=== PATIENT | male | born 1955 | race Caucasian/White ===

== ENCOUNTER 2022-10-06 08:56 | Emergency (ER) | payer MEDICARE, SELFPAY ==
[2022-10-06] VITALS (10 sets, daily range): BP systolic 125–161; BP diastolic 76–89; PULSE 44–56; RESP 14–20; TEMP 36.6; O2SAT 94–100
--- NOTE | ~2022-10-06 | XR_ITS ---
XR chest 1V portable DATE: 10/06/2022 09:32 INDICATION: Midsternal chest pain TECHNIQUE: Portable AP chest on 10/06/2022 5 0926 hours COMPARISON: October 16, 2016 two-view chest FINDINGS: Normal heart size. No hilar or mediastinal enlargement. No pulmonary infiltrate or consolid ation, pleural effusion or pulmonary vascular congestion or pneumothorax. Mild dextroscoliosis and degenerative spurring of the thoracic spine. IMPRESSION: No active cardiopulmonary disease Reviewed, dictated and finalized at location B.
--- NOTE | 2022-10-06 09:13 | ECG_ITS ---
Measurements Intervals Gable Rate: 52 P: 44 ND: 206 QRS: -3 QRSD: 107 T: -1 QT: 423 QTc: 396 Interpretive Statements SINUS BRADYCARDIA DELAYED PRECORDIAL R/S TRANSITION MINIMAL Q WAVES- HIGH LATERAL LEADS BORDERLINE T WAVE ABNORMALITY- INFERIOR LEADS BORDERLINE ECG NO PREVIOUS ECG AVAILABLE FOR COMPARISON Electronically Signed On 10-06-2022 10:48:12 CDT by Cyrus Herzog D.O.
--- NOTE | 2022-10-06 09:22 | ED.CHESTPAIN ---
HPI - Chest Pain General Chief Complaint: Chest Pain Stated Complaint: Chest pain Time Seen by Provider: 10/06/22 09:11 Source: patient and family Mode of arrival: ambulatory Limitations: no limitations History of Present Illness HPI narrative: 67-year-old male presents with 3 days of intermittent chest pain accompanied by numbness and tingling of all 4 extremities. Denies any shortness of breath or ankle swelling. No nausea, vomiting, diarrhea, fevers or chills. Patient reports the pain is worse at nighttime and not particularly increased with exertion. Past medical history significant for hypertension which is presently uncontrolled as he and his physician has been changing his medications. No prior history cardiac disease or CO. MD complaint: chest discomfort Onset (ago): day(s) Timing of current episode: episodic, daily and still present ( but not as bad) Prior episodes: No Onset: during rest Pain location: substernal Pain radiation: none Severity: mild Quality: tightness Relieving factors: nothing Exacerbating factors: supine Treatment prior to arrival: none Risk Factors Coronary artery disease risk factors: hyperlipidemia and hypertension Thoracic aortic dissection risk factors: longstanding hypertension Related Data Home Medications Medication Instructions Recorded Confirmed lisinopril 20 mg tablet 20 mg PO DAILY 10/06/22 10/06/22 pravastatin 10 mg tablet 10 mg PO DAILY 10/06/22 10/06/22 Allergies Allergy/AdvReac Type Severity Reaction Status Date / Time No Known Allergies Allergy Unverified 10/16/16 16:59 Review of Systems Review of Systems: All systems reviewed & are unremarkable except as noted in HPI and below Constitutional: Constitutional: Denies chills, Reports difficulty sleeping, Denies excessive sweating, Denies fever(s) and Denies weakness Eyes: Eyes: Denies blurry vision and Denies loss of vision ENT: Denies dizziness, Denies headache(s) and Denies sore throat Cardiovascular: Cardiovascular: Denies syncope, Denies rapid heart rate, Denies pedal edema, Denies irregular heart rhythm, Denies leg edema, Denies dyspnea and Denies orthopnea Respiratory: Respiratory: Denies chest congestion, Denies cough and Denies dyspnea Gastrointestinal: Gastrointestinal: Denies abdominal pain, Reports belching, Denies change in bowel habits, Denies constipation, Denies dysphagia, Denies diarrhea, Denies nausea and Denies vomiting Musculoskeletal: Musculoskeletal: Denies back pain, Denies myalgias and Reports tingling Integumentary/Breasts: Skin/Breast: Denies rash Psychiatric: Psychiatric: Denies anxiety and Denies depression PMFSH Past Medical History Medical History Hypertension Exam Const: General: cooperative, alert and average body habitus; No diaphoretic or edematous Nutritional Appearance: well nourished Orientation/consciousness: No confusion Limitations: no limitations HENMT: Head: normal to inspection and no acral cyanosis Ears: hearing grossly normal bilaterally Face/Nose/Sinus: Normal external nose present, no nasal discharge noted, face symmetric and ecchymosis ( left periorbital region) Face and sinus: normal facial exam Eyes: Conjunctivae: conjunctivae normal Neck: Neck: normal visual inspection, trachea midline and no JVD Chest: Chest palpation & inspection: normal inspection of the chest, normal palpation of entire chest wall and no crepitus Resp: Effort & Inspection: normal respiratory effort, no audible wheezes and no respiratory distress Auscultation: clear to auscultation bilaterally Cardio: Jugular venous distension: no JVD Palpation: normal PMI Rate: bradycardic Rhythm: regular rhythm GI: Inspection: normal to inspection GI Palp: No abdominal tenderness and Yes Soft to palpation Auscultation: normal bowel sounds Skin: General skin exam: normal color and dry skin Lesions: no lesions Rashes: no rashes Neuro
[2022-10-06] MEDS: ASPIRIN 81 MG CHEWABLE TABLET 324 MG PO (09:25)
[2022-10-06 09:29] LABS: Basophils Absolute Auto 0.06 K/mm3 (0.00-0.10); Basophils Percent Auto 1.2 % (0.0-1.0); Eosinophils Absolute Auto 0.08 K/mm3 (0.02-0.50); Eosinophils Percent Auto 1.7 % (1.0-6.0); Hematocrit 39.3 % (37.0-46.0); Hemoglobin 13.4 g/dL (12.4-15.3); Immature Granulocyte Absolute 0.01 K/mm3 (0.00-0.00); Immature Granulocyte Percent A 0.2 % (0.0-0.0); Lymphocytes Absolute Auto 1.26 K/mm3 (1.10-4.50); Lymphocytes Percent Auto 26.1 % (18.0-42.0); Mean Corpuscular HGB Conc 34.1 g/dL (32.0-36.0); Mean Corpuscular Hemoglobin 31.5 pg (27.0-31.0); Mean Corpuscular Volume 92.3 fL (78.0-102.0); Mean Platelet Volume 10.1 fl (8.7-11.0); Monocytes Absolute Auto 0.45 K/mm3 (0.10-0.90); Monocytes Percent Auto 9.3 % (2.0-11.0); Neutrophils Percent Auto 61.5 % (50.0-70.0); Platelet Count Result 223 K/mm3 (150-420); Red Blood Count 4.26 M/mm3 (4.70-6.10); Red Cell Distribution Width 13.4 % (11.6-14.4); White Blood Count 4.8 K/mm3 (4.8-10.8)
[2022-10-06 09:41] LABS: D Dimer 0.27 mg/L (0.19-0.50)
[2022-10-06 09:46] LABS: Anion Gap 7 mmol/L (8-16); Blood Urea Nitrogen 16 mg/dL (7-18); Calcium 8.8 mg/dL (8.5-10.1); Carbon Dioxide 27 mmol/L (21-32); Chloride 106 mmol/L (98-108); Estimated CRCL calculation 75 ml/min; Estimated Glomerular Filt Rate > 60; Glucose 105 mg/dL (70-99); Osmolality Calculated 291 mOsm/kg (285-295); Potassium 4.3 mmol/L (3.5-5.1); Sodium 140 mmol/L (136-145)
== END 2022-10-06 10:27 | disposition home or self-care (01) ==
PROVIDERS: Emergency Provider Family Medicine
DX: R07.89 Other chest pain (principal); I10 Essential (primary) hypertension
CPT/HCPCS: 36415; 71045; 80048; 84484; 85025; 85380; 93005; 99283; A9270

== ENCOUNTER 2023-04-09 07:46 | Outpatient (CLI) | payer MEDICARE, SELFPAY ==
[2023-04-09 08:01] LABS: Basophils Absolute Auto 0.07 K/mm3 (0.00-0.10); Basophils Percent Auto 1.2 % (0.0-1.0); Eosinophils Absolute Auto 0.14 K/mm3 (0.02-0.50); Eosinophils Percent Auto 2.4 % (1.0-6.0); Hematocrit 41.5 % (37.0-46.0); Immature Granulocyte Absolute 0.02 K/mm3 (0.00-0.00); Immature Granulocyte Percent A 0.3 % (0.0-0.0); Lymphocytes Absolute Auto 1.59 K/mm3 (1.10-4.50); Lymphocytes Percent Auto 27.1 % (18.0-42.0); Mean Corpuscular HGB Conc 33.7 g/dL (32.0-36.0); Mean Corpuscular Hemoglobin 31.3 pg (27.0-31.0); Mean Corpuscular Volume 92.8 fL (78.0-102.0); Mean Platelet Volume 9.8 fl (8.7-11.0); Monocytes Absolute Auto 0.58 K/mm3 (0.10-0.90); Monocytes Percent Auto 9.9 % (2.0-11.0); Neutrophils Absolute Auto 3.5 K/mm3 (1.7-7.2); Neutrophils Percent Auto 59.1 % (50.0-70.0); Platelet Count Result 253 K/mm3 (150-420); Red Blood Count 4.47 M/mm3 (4.70-6.10); White Blood Count 5.9 K/mm3 (4.8-10.8)
[2023-04-09 08:09] LABS: Hemoglobin A1C 5.6 % (<5.7)
[2023-04-09 08:43] LABS: Alanine Aminotransferase 19 U/L (16-63); Albumin Level 3.6 g/dL (3.4-5.0); Alkaline Phosphatase 54 U/L (46-116); Anion Gap 8 mmol/L (8-16); Aspartate Amino Transferase 18 U/L (15-37); Bilirubin Direct 0.2 mg/dL (0-0.2); Bilirubin,Total 1.6 mg/dL (0.00-1.00); Blood Urea Nitrogen 18 mg/dL (7-18); Calcium 9.2 mg/dL (8.5-10.1); Carbon Dioxide 27 mmol/L (21-32); Chloride 105 mmol/L (98-108); Cholesterol 185 mg/dL (0-200); Estimated Glomerular Filt Rate > 60; Glucose 99 mg/dL (70-99); HDL Direct 54 mg/dL (40-60); LDL Cholesterol Calculated 114 mg/dL (<130); Osmolality Calculated 291 mOsm/kg (285-295); Potassium 4.8 mmol/L (3.5-5.1); Sodium 140 mmol/L (136-145); Total Protein 6.8 g/dL (6.4-8.2); Triglycerides 87 mg/dL (0-150)
== END 2023-04-09 07:47 | disposition home or self-care (01) ==
LOC: CHSLAB 07:50
DX: E78.5 Hyperlipidemia, unspecified (principal); Z79.899 Other long term (current) drug therapy; G47.33 Obstructive sleep apnea (adult) (pediatric)
CPT/HCPCS: 36415; 80053; 80061; 82248; 83036; 85025

== ENCOUNTER 2023-06-12 10:40 | Outpatient (CLI) | payer MEDICARE, SELFPAY ==
--- NOTE | ~2023-06-12 | XR_ITS ---
Lumbosacral Spine: AP and lateral views Clinical History: Pain Findings: The normal lordotic curve is maintained. No fracture or subluxation evident. There is moder ate to advanced degenerative disc narrowing at L3-L4 and L4-L5. There is mild degenerative disc narro wing at remaining lumbar levels. There is moderate to advanced facet arthropathy throughout the lumba r spine. The sacroiliac joints are normally outlined. Impression: Moderate to advanced degenerative spondylosis, as above. Reviewed, dictated and finalized at location M. ISSIONS COORDINATOR Impression: Moderate to advanced degenerative spondylosis, as above.
== END 2023-06-12 10:41 | disposition home or self-care (01) ==
LOC: CHSIMG 10:44
DX: M54.9 Dorsalgia, unspecified (principal); M43.06 Spondylolysis, lumbar region
CPT/HCPCS: 72100

== ENCOUNTER 2024-03-08 07:11 | Outpatient (CLI) | payer MEDICARE, SELFPAY ==
[2024-03-08 07:27] LABS: Hematocrit 41.2 % (37.0-46.0); Mean Corpuscular Hemoglobin 31.1 pg (27.0-31.0); Mean Corpuscular Volume 91.6 fL (78.0-102.0); Mean Platelet Volume 9.8 fl (8.7-11.0); Platelet Count Result 244 K/mm3 (150-420); Red Cell Distribution Width 13.1 % (11.6-14.4)
[2024-03-08 07:46] LABS: Hemoglobin A1C 5.3 % (<5.7)
[2024-03-08 08:25] LABS: Alanine Aminotransferase 22 U/L (16-63); Albumin Level 3.7 g/dL (3.4-5.0); Alkaline Phosphatase 49 U/L (46-116); Anion Gap 7 mmol/L (4-12); Aspartate Amino Transferase 19 U/L (15-37); Bilirubin,Total 1.3 mg/dL (0.00-1.00); Blood Urea Nitrogen 22 mg/dL (7-18); Calcium 8.7 mg/dL (8.5-10.1); Carbon Dioxide 29 mmol/L (21-32); Chloride 102 mmol/L (98-108); Estimated Glomerular Filt Rate > 60; Glucose 93 mg/dL (70-99); Osmolality Calculated 289 mOsm/kg (285-295); Potassium 4.4 mmol/L (3.5-5.1); Sodium 138 mmol/L (136-145); Total Protein 6.7 g/dL (6.4-8.2)
== END 2024-03-08 07:12 | disposition home or self-care (01) ==
LOC: CHSLAB 07:15
DX: I10 Essential (primary) hypertension (principal); Z79.899 Other long term (current) drug therapy
CPT/HCPCS: 36415; 80053; 83036; 85027

== ENCOUNTER 2024-06-21 10:40 | Outpatient (CLI) | payer MEDICARE, SELFPAY ==
[2024-06-21 10:58] LABS: Basophils Absolute Auto 0.07 K/mm3 (0.00-0.10); Basophils Percent Auto 1.2 % (0.0-1.0); Eosinophils Percent Auto 1.7 % (1.0-6.0); Hematocrit 40.3 % (37.0-46.0); Hemoglobin 13.8 g/dL (12.4-15.3); Immature Granulocyte Absolute 0.03 K/mm3 (0.00-0.00); Immature Granulocyte Percent A 0.5 % (0.0-0.0); Lymphocytes Absolute Auto 1.43 K/mm3 (1.10-4.50); Lymphocytes Percent Auto 24.7 % (18.0-42.0); Mean Corpuscular HGB Conc 34.2 g/dL (32-36); Mean Corpuscular Hemoglobin 30.9 pg (27.0-31.0); Mean Corpuscular Volume 90.2 fL (78.0-102.0); Mean Platelet Volume 9.8 fl (8.7-11.0); Monocytes Absolute Auto 0.59 K/mm3 (0.10-0.90); Monocytes Percent Auto 10.2 % (2.0-11.0); Neutrophils Absolute Auto 3.58 K/mm3 (1.70-7.20); Neutrophils Percent Auto 61.7 % (50.0-70.0); Platelet Count Result 254 K/mm3 (150-420); Red Blood Count 4.47 M/mm3 (4.70-6.10); Red Cell Distribution Width 13.4 % (11.6-14.4); White Blood Count 5.8 K/mm3 (4.8-10.8)
[2024-06-21 11:26] LABS: Anion Gap 12 mmol/L (4-12); Blood Urea Nitrogen 23 mg/dL (7-18); Calcium 9.1 mg/dL (8.5-10.1); Carbon Dioxide 22 mmol/L (21-32); Chloride 103 mmol/L (98-108); Estimated Glomerular Filt Rate > 60; Glucose 79 mg/dL (70-99); Osmolality Calculated 286 mOsm/kg (285-295); Potassium 4.8 mmol/L (3.5-5.1); Sodium 137 mmol/L (136-145)
--- OUTSIDE RECORDS SUMMARY | 2024-06-25 06:30 | XMS_ITS | Clinical Summary ---
Author Organization [facility] Address [address] [place] [address] Care Team Providers Care Munitions Factory Worker Name Role Phone Unavailable Primary Care Provider Unavailabl e Social History Tobacco Use Types Packs/Day Years Used Date Smoking Tobacco: Never Assessed Sex and Gender Information Value Date Recorded Sex Assigned at Not on file Legal Sex Male 7:03 AM PST Gender Identity Not on file Sexual Orientation Not on file Plan of Treatment Not on file
--- OUTSIDE RECORDS SUMMARY | 2024-06-25 06:30 | XMS_ITS | Referral Summary ---
Author Organization [facility] Address [address] [place] [address] Care Team Providers Care Inspector Brake Lining Name Role Phone Unavailable Primary Care Provider [...]
--- OUTSIDE RECORDS SUMMARY | 2024-06-25 06:30 | XMS_ITS | Encounter Summary ---
Author Organization [facility] Address [address] [place] [address] Care Team Providers Care Energy Operations Vice President Name Role Phone Unavailable Primary Care Provider Unavailabl e Encounter Details Date Type Department Care Team (Late st Contact Info) Description 07/28/2019 Converted 13x Documents [facility] [address] [place] [address] Social History Tobacco Use Types Packs/Day Years Used Date Smoking Tobacco: Never Assessed Sex and Gender Information Value Date Recorded Sex Assigned at Not on file Legal Sex Male 7:03 AM PST Gender Identity Not on file Sexual Orientation Not on file documented as of this encounter Plan of Treatment Not on file documented as of this encounter Visit Diagnoses Not on filedocumented in this encounter
--- OUTSIDE RECORDS SUMMARY | 2024-06-25 06:30 | XMS_ITS ---
Author Organization [facility] Address [address] [place] [address] Care Team Providers Care Tea Plantation Worker Name Role Phone Unavailable Unavailable Unavailable Surgery Details Not on file Complications Check Surgery Details section. Procedure Estimated Blood Loss Check Surgery Details section. Procedure Findings Check Surgery Details section. Procedure Specimens Taken Check Surgery Details section.
--- OUTSIDE RECORDS SUMMARY | 2024-06-25 06:30 | XMS_ITS | Encounter Summary ---
Author Organization [facility] [place] [place] [address] [place] [address] Care Team Providers Care Supervisor Refractory Products Name Role Phone Unavailable Primary Care Provider Unavailabl e Prior Encounters Date Type Department Care Team Description 07/28/2019 Converted CPS Chart Documents [facility] [address] [place] [address] <No scans attached> 07/28/2019 Converted 13x Documents [facility] [address] [place] [address] <No scans attached> Plan of Treatment Not on file Procedures Procedure Name Priority Date/Time Associated Diagnosis Comments 30 CEMENT CROWN Routine 08/10/2014 1:00 AM [facility] ADDITIONAL X-RAY Routine 08/10/2014 1:00 AM [facility] ADDITIONAL X-RAY Routine 08/10/2014 1:00 AM [facility] SINGLE X-RAY Routine 08/10/2014 1:00 AM [facility] 30 CERECFIRED CROWNPOST Routine 08/07/2014 1:00 AM [facility] 30 LIMITED ORAL EVALUATION - PROBLEM FOCUSED Routine 08/07/2014 1:00 AM [facility] ADDITIONAL X-RAY Routine 08/07/2014 1:00 AM [facility] SINGLE X-RAY Routine 08/07/2014 1:00 AM [facility] INTRAORAL PHOTO Routine 08/07/2014 1:00 AM [facility] 18 LIMITED ORAL EVALUATION - PROBLEM FOCUSED Routine 02/03/2014 1:00 AM MDT Visit Diagnoses Not on file
--- OUTSIDE RECORDS SUMMARY | 2024-06-25 06:30 | XMS_ITS | Continuity of Care Document ---
Author Organization [facility] Address [address] [place] [address] Phone Care Team Providers Care Plastic Cablemaking Machine Operator Name Role Phone Drea Garcia Unavailable Unavailable [...] Copied on Encounter OFFICE/OUTPAT IENT VISIT, NEW [facility], [address], [place], [id number], tel:[phone] [facility] in arm (chief complaint) Superficial foreign body of right upper arm, initial encounter Jorge Alberto Shepard. [address] [place], [place] [address], [place], [id number] , [place]. tel:[phone] Referring Provider: Drea Azul, [address] [place] [address], [id number] . tel:[phone] Family History Family Member Type Diagnosis Age At Onset No Information Payers Payer name Insurance type Covered republican ID Authoriza tibharath(s) Aetna MEDICARE [id number] 16 [id number] Social History Type Description Quantity Date Captured [...] minutes. Voiced he is currently traveling from [place] and reached into his back seat of his vehicle and a fish hook accidentally punctured and stuck in his right arm. Attempted to remove the hook on his own but was unsuccessful. Last tetanus was in 2020. Mental Status Date Cognitive Assessment Orientation - Aston ed to time, place, person, situation. Patient Care Teams Name Effective Dates (start - stop) Status Members No Information
--- OUTSIDE RECORDS SUMMARY | 2024-06-25 06:30 | XMS_ITS | CCD ---
Author Organization [facility] [place] [address] [place] [address] Care Team Providers Care Gluer Machine Setup Operator Name Role Phone Unavailable Primary Care Provider [...]
--- OUTSIDE RECORDS SUMMARY | 2024-06-25 06:30 | XMS_ITS | Encounter Summary ---
Author Organization [facility] [place] [address] [place] [address] Care Team Providers Care Fire Marshal Name Role Phone Unavailable Primary Care Provider Unavailabl e Encounter Details Date Type Department Care Team (Late st Contact Info) Description 07/28/2019 Converted CPS Chart Documents [facility] [address] [place] [address] Social History Tobacco Use Types [...]
== END 2024-06-21 10:41 | disposition home or self-care (01) ==
DX: Z01.818 Encounter for other preprocedural examination (principal)
CPT/HCPCS: 36415; 80048; 85025

== ENCOUNTER 2024-12-19 09:11 | Emergency (ER) | payer MEDICARE, SELFPAY ==
--- NOTE | ~2024-12-19 | CT_ITS ---
Non-contrast Head CT History: Head injury Technique: Axial non-contrast imaging of the brain was performed. Dose reduction technique was used on this scan by utilizing automated exposure control and iterative reconstruction technique. The dose -length product (DLP) was 605.33 mGy-cm. Findings: There is no evidence of intracranial hemorrhage, mass lesion, or acute infarct. Brain par enchyma appears normal. The ventricles and subarachnoid spaces are normal in size. The calvarium ap pears normal. The visualized paranasal sinuses and mastoid air cells are clear. Impression: No significant abnormality seen. Reviewed, dictated and finalized at location . Impression: No significant abnormality seen.
[2024-12-19 09:11] VITALS: BP 155/77; PULSE 78; RESP 17; TEMP 36.8; O2SAT 100
--- NOTE | 2024-12-19 09:19 | ED.HEATRA ---
HPI - Head Injury General Chief complaint: Head Injury Stated complaint: head injury Time Seen by Provider: 12/19/24 09:18 Source: patient Mode of arrival: ambulatory Limitations: no limitations History of Present Illness HPI Narrative: 69-year-old male with hypertension, dyslipidemia presents to the ED after he dropped heavy weightlifting apparatus on his head while working out in the gym. He presents with -- 5.5 cm full-thickness laceration over his frontoparietal region -- 2 cm superficial laceration over the left parietal region. No loss of consciousness. No focal neuro deficit. no neck or spine pain. No ENT bleeding any new ENT discharge Complaint: head injury Onset (ago): hour(s) ( 1 hour ago) Mechanism of Injury: sports related injury Place: other ( [place]) Loss of Consciousness: no Location of injury: frontal and parietal Quality: aching Radiation: none Other Injuries: none Context: on aspirin Associated symptoms: denies other symptoms Related Data Home Medications ?Medication ?Instructions ?Recorded ?Confirmed ?Last Taken ?Type lisinopril 20 mg tablet 20 mg PO DAILY 10/06/22 10/06/22 Unknown History pravastatin 10 mg tablet 10 mg PO DAILY 10/06/22 10/06/22 Unknown History Allergies Allergy/AdvReac Type Severity Reaction Status Date / Time No Known Allergies Allergy Verified 12/19/24 09:16 Review of Systems Review of Systems: All systems reviewed & are unremarkable except as noted in HPI and below PMFSH Past Medical History Medical History Hypertension Exam Narrative: vitals are stable. Const: General: no acute distress Nutritional Appearance: well nourished Orientation/consciousness: patient oriented x3 Limitations: no limitations HENMT: Head: normal to inspection Ears: external ears normal Face/Nose/Sinus: Normal external nose present Face and sinus: normal facial exam Mouth: Yes Normal oral and palatal mucosa present Throat: posterior oropharynx normal Eyes: Conjunctivae: conjunctivae normal Pupils: Equal, round and reactive pupils present EOM: EOMs intact bilaterally Direct Ophthalmoscopy: no photophobia Neck: Neck: normal visual inspection, no lymphadenopathy and no meningeal signs Chest: Chest palpation & inspection: normal inspection of the chest Resp: Effort & Inspection: normal respiratory effort Auscultation: clear to auscultation bilaterally Cardio: Rate: regular rate Rhythm: regular rhythm GI: GI Palp: Yes Soft to palpation Auscultation: normal bowel sounds Other: No tenderness/rigidity /rebound. : General: Yes no CVA tenderness Back/Spine/Pelvis: Back: no CVA tenderness Skin: General skin exam: normal color Other: Two lacerations on the scalp. First laceration is 5.5 cm full thickness on the parieto-occipital region 2nd laceration over the left parietal region measuring 2 cm it is partial thickness. Neuro: General: patient oriented x3, moves all extremities and no meningeal signs Cranial nerves: Yes CN's II-XII intact bilaterally Speech: normal speech Gait exam (Neuro): Normal gait present Extrem: General: normal to inspection and no clubbing, cyanosis or edema Psych: Mental Status: mental status grossly normal Affect: normal affect Attitude: cooperative Course Course Emergency Course: Head injury- CT of the head did not show any acute findings. 5.5 cm full-thickness scalp laceration on the frontoparietal region 2 cm superficial laceration over the left parietal region. Vital Signs Vital signs: Vital Signs Temperature 36.8 C 12/19/24 09:11 Pulse Rate 78 12/19/24 09:11 Respiratory Rate 17 12/19/24 09:11 Blood Pressure 155/77 H 12/19/24 09:11 Pulse Oximetry 100 12/19/24 09:11 Oxygen Delivery Room Air 12/19/24 09:11 Temperature 36.8 C 12/19/24 09:11 Pulse Rate 78 12/19/24 09:11 Respiratory Rate 17 12/19/24 09:11 Blood Pressure 155/77 H 12/19/24 09:11 Pulse Oximetry 100 12/19/24 09:11 Oxygen Delivery Room Air 12/19/24 09:11 Procedures Laceration Laceration 1: Date: 12/19/24 Time: 10:00 Site: scalp Size (cm): 5.5 Description: linear Depth: simple, single layer Local Anesthetic: lidocaine 1% Amount of anesthesia used (mL): 5 Pre-repair: wound explored ====== Skin Level ====== Skin layer closed with: nylon Size (cm): 3-0 Number of sutures: 9 Technique: running ====== Subcutaneous Layer ====== ====== Muscle Layer ====== ====== Tendon Layer ====== Laceration 2: Date: 12/19/24 Time: 10:00 Site: scalp Size (cm): 2 Description: linear Depth: simple, single layer Local Anesthetic: lidocaine 1% Amount of anesthesia used (mL): 2 ====== Skin Level ====== Skin layer closed with: nylon Size (cm): 3-0 Number of sutures: 3 Technique: running ====== Subcutaneous Layer ====== ====== Muscle Layer ====== ====== Tendon Layer ====== MDM - Head Injury MDM Narrative Medical decision making narrative: Head injury scalp laceration Differential Diagnosis Differential diagnosis: Likely epidural hematoma and closed head injury Lab Data Attestation: I reviewed the patient's lab results. Discharge Plan Discharge Clinical Impression: Closed head injury Qualifiers: Encounter type: initial encounter Qualified Code(s): S09.90XA - Unspecified injury of head, initial encounter Laceration of scalp Qualifiers: Encounter type: initial encounter Qualified Code(s): S01.01XA - Laceration without foreign body of scalp, initial encounter Patient Disposition: Home Condition: Stable Instructions: Antibiotic Form, Laceration (ED), Head Injury (ED) Additional Instructions: suture removal in 10 days Patient Language: Ukrainian Prescriptions: No Action lisinopril 20 mg tablet 20 mg PO DAILY pravastatin 10 mg tablet 10 mg PO DAILY Follow-up/Referrals: UNKNOWN,DOCTOR [Non-Staff] - Time of Disposition: 10:38
--- OUTSIDE RECORDS SUMMARY | 2024-12-19 09:19 | XMS_ITS | Clinical Summary ---
Author Organization [facility] Address [address] [place] [address] Care Team Providers Care Clinical Quality Assurance Associate Name Role Phone Unavailable Primary Care Provider [...]
--- OUTSIDE RECORDS SUMMARY | 2024-12-19 09:19 | XMS_ITS | Continuity of Care Document ---
Author Organization [facility] Address [address] [place] [address] Phone Care Team Providers Care Experimental Mechanic Electrical Name Role Phone Drea Garcia Unavailable Unavailable [...] Copied on Encounter OFFICE/OUTPAT IENT VISIT, NEW [facility], [address] [place], [place], [id number], tel:[phone] [facility] At [facility] in arm (chief complaint) Superficial foreign body of right upper arm, initial encounter Jorge Alberto Shepard. [address] [place] [address], [id number] , [place]. tel:[phone] Referring Provider: Drea Azul, [address] [place] [address], [address] . tel:[phone] Family History Family Member Type Diagnosis Age At Onset No Information Payers Payer name Insurance type Covered republican ID Authoriza tibharath(s) Aetna MEDICARE [id number] 16 [id number] Social History Type Description Quantity Date Captured [...] Of Treatment Date Type Action Status Goal Td vaccine. Due on 24 due Goal FOBT. Due on due Goal Sigmoidoscopy. Due on due Goal Depression screening. Due on due Goal Pneumococcal vaccine. Due on due Goal Unhealthy drug use screening . Due on due Goal Zoster vaccine (1st). Due on due Goal Tdap. Due on due Goal FIT-DNA. Due on due Goal FIT. Due on due Goal Colonoscopy. Due on due Goal Lipid panel. Due on due Goal Hepatitis C screening. Due o n due Goal Influenza vaccine. Due on Ma due Goal DEXA Scan. Due on due Goal CT-Colonography. Due on due History Of Present Illness [...] minutes. Voiced he is currently traveling from [place] and reached into his back seat of his vehicle and a fish hook accidentally punctured and stuck in his right arm. Attempted to remove the hook on his own but was unsuccessful. Last tetanus was in 2020. Mental Status Date Cognitive Assessment Orientation - [place] ed to time, place, person, situation. Patient Care Teams Name Effective Dates (start - stop) Status Members No Information
--- OUTSIDE RECORDS SUMMARY | 2024-12-19 09:19 | XMS_ITS | Encounter Summary ---
Author Organization [facility] Address [address] [place] [address] Care Team Providers Care Public Relations Consultant Name Role Phone Unavailable Primary Care Provider Unavailabl e Prior Encounters Date Type Department Care Team Description 07/28/2019 Converted CPS Chart Documents [facility] [address] [place] [address] <No scans attached> 07/28/2019 Converted 13x Documents [facility] [address] [place] [address] <No scans attached> Plan of Treatment Not on file Procedures Procedure Name Priority Date/Time Associated Diagnosis Comments 30 CEMENT CROWN Routine 08/10/2014 1:00 AM [facility] ADDITIONAL X-RAY Routine 08/10/2014 1:00 AM [facility] [...]
--- OUTSIDE RECORDS SUMMARY | 2024-12-19 09:49 | XMS_ITS | Continuity of Care Document ---
Author Organization [facility] Address [address] [place] [address] Phone Care Team Providers Care [employer] Name Role Phone Drea Garcia Unavailable Unavailable [...] Copied on Encounter OFFICE/OUTPAT IENT VISIT, NEW [facility], [address], [place], [id number], tel:[phone] [facility] in [place] (chief complaint) Superficial foreign body of right upper arm, initial encounter Jorge Alberto Shepard. [address] [place], [place] [address], [place], [id number] , [place]. tel:[phone] Referring Provider: Drea Azul, [address] [place] [address], [id number] . tel:[phone] Family History Family Member Type Diagnosis Age At Onset No Information Payers Payer name Insurance type Covered constitution party ID Authoriza tibharath(s) [employer] MEDICARE [id number] Social History Type Description Quantity Date Captured [...] minutes. Voiced he is currently traveling from [place] and reached into his back seat of his vehicle and a fish hook accidentally punctured and stuck in his right arm. Attempted to remove the hook on his own but was unsuccessful. Last tetanus was in 2020. Mental Status Date Cognitive Assessment Orientation - [place] ed to time, place, person, situation. Patient Care Teams Name Effective Dates (start - stop) Status Members No Information
--- OUTSIDE RECORDS SUMMARY | 2024-12-19 09:49 | XMS_ITS | Clinical Summary ---
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
--- OUTSIDE RECORDS SUMMARY | 2024-12-19 09:49 | XMS_ITS | Encounter Summary ---
Author Organization [facility] Address [address] [place] [address] Care Team Providers Care Mail Caller Name Role Phone Unavailable Primary Care Provider Unavailabl e Prior Encounters Date Type Department Care Team Description 07/28/2019 Converted CPS Chart Documents Gloria Lowe [facility] [address] [place] [address] <No scans attached> 07/28/2019 Converted 13x Documents Gloria Lowe [facility] [address] [place] [address] <No scans attached> Plan of Treatment Not on file Procedures Procedure Name Priority Date/Time Associated Diagnosis Comments 30 CEMENT CROWN Routine 08/10/2014 1:00 AM [facility] ADDITIONAL X-RAY Routine 08/10/2014 1:00 AM [...]
[2024-12-19 10:51] VITALS: BP 134/83; PULSE 58; RESP 16; TEMP 36.8; O2SAT 98
== END 2024-12-19 10:51 | disposition home or self-care (01) ==
PROVIDERS: Emergency Provider Internal Medicine Critical Care Medicine
DX: S01.01XA Laceration without foreign body of scalp, initial encounter (principal); I10 Essential (primary) hypertension; W20.8XXA Other cause of strike by thrown, projected or falling object, initial encounter
CPT/HCPCS: 12002; 70450; 99284

== ENCOUNTER 2025-02-27 06:58 | Outpatient (CLI) | payer MEDICARE, SELFPAY ==
[2025-02-27 07:14] LABS: Hematocrit 40.9 % (37.0-46.0); Hemoglobin 13.5 g/dL (12.4-15.3); Mean Corpuscular HGB Conc 33.0 g/dL (32-36); Mean Corpuscular Hemoglobin 31.0 pg (27.0-31.0); Mean Corpuscular Volume 93.8 fL (78.0-102.0); Platelet Count Result 255 K/mm3 (150-420); Red Blood Count 4.36 M/mm3 (4.70-6.10); White Blood Count 5.1 K/mm3 (4.8-10.8)
[2025-02-27 07:52] LABS: Alanine Aminotransferase 18 U/L (6-50); Albumin Level 4.3 g/dL (3.5-5.1); Alkaline Phosphatase 46 U/L (38-126); Anion Gap 6 mmol/L (4-12); Aspartate Amino Transferase 34 U/L (17-59); Bilirubin,Total 1.7 mg/dL (0.2-1.3); Blood Urea Nitrogen 20 mg/dL (9-20); Calcium 9.5 mg/dL (8.4-10.2); Carbon Dioxide 27 mmol/L (22-30); Chloride 106 mmol/L (98-107); Cholesterol 177 mg/dL (0-200); Estimated Glomerular Filt Rate > 60; Glucose 98 mg/dL (65-110); HDL Direct 59 mg/dL; Hemoglobin A1C 5.5 % (<5.7); Osmolality Calculated 290 mOsm/kg (285-295); Potassium 5.1 mmol/L (3.4-5.0); Sodium 139 mmol/L (137-145); Total Protein 7.0 g/dL (6.3-8.2); Triglycerides 81 mg/dL (<150)
== END 2025-02-27 06:59 | disposition home or self-care (01) ==
LOC: CHSLAB 07:02
DX: E78.00 Pure hypercholesterolemia, unspecified (principal); Z13.1 Encounter for screening for diabetes mellitus
CPT/HCPCS: 36415; 80053; 80061; 83036; 85027

== ENCOUNTER 2025-05-13 11:41 | Outpatient (CLI) | payer MEDICARE, SELFPAY ==
--- OUTSIDE RECORDS SUMMARY | 2023-11-28 08:05 | XMS_ITS | Continuity of Care Document ---
Author Organization [facility] Address [address] [place] [place] [address] Phone Care Team Providers Care Sky Cap Name Role Phone Drea Garcia Unavailable Unavailable Allergies, Adverse Reactions, Alerts Substance Reaction Status Criticality No Known Allergies Active No Inform ation Medications Medication Instructions Dosage Effective Dates (start - stop) Status Comments cephalexin 500 mg capsule take 1 capsule by oral route every 12 hours 500 MG - No Longer Active mupirocin 2 % topical ointment apply by topical route 3 times every day a small amount to the affected area 0.00 - No Longer Active Procedures Procedure Date OFFICE/OUTPATIENT VISIT, NEW Advance Directives Directive Yes / No Effective Date File Name No Information Encounters Encounter Description Practice Location Reason(s) For Visit Diagnoses Date Provider Providers Copied on Encounter OFFICE/OUTPAT IENT VISIT, NEW [facility], [address], [place], [id number], tel:[phone] [facility] in arm (chief complaint) Superficial foreign body of right upper arm, initial encounter Jorge Alberto Shepard. [address] [place], [place] [address], [id number] , [place]. tel:[phone] Referring Provider: Drea Azul, [address] [place] [address], [address] . tel:[phone] Family History Family Member Type Diagnosis Age At Onset No Information Payers Payer name Insurance type Covered democrat ID Authoriza tibharath(s) Aetna MEDICARE [id number] 16 [id number] Social History Type Description Quantity Date Captured Comments Alcohol Use Details Unknown Caffeine Use Details Unknown Tobacco Use Status No Information Smoking Status No Information Sex Male Vital Signs Date / Time: Height Weight BMI Pulse Rate Blood Pressure Temperature Respiratory Rate Body Surface Area Head Circumference Head Circ. Percentile Wt./Gael. Percentile BMI percentile Pulse Ox Inhaled Ox 4:03 PM 86.545 kg (190.80 lbs) 60 /min 97.50 F 18 /min 97 % Chief Complaint And Reason For Visit From encounter dated '11/28/2023 14:05'. Fish hook in arm (chief complaint). Description: The symptoms began on 11/28/2023 and generally lasts varies. The symptoms are reported as being mild. The symptoms occur constantly. The client statesthe symptoms are acute and are of new onset. Patient presents to the clinic with complaints of a fish hooking being lodged in his skin of the medial aspect of his right upper arm. Reason For Referral Reason For Referral No Information Plan Of Treatment Date Type Action Status Goal CT-Colonography. Due on due Goal DEXA Scan. Due on due Goal Influenza vaccine. Due on due Goal Hepatitis C screening. Due o n due Goal Lipid panel. Due on due Goal Colonoscopy. Due on due Goal FIT. Due on due Goal FIT-DNA. Due on due Goal Tdap. Due on due Goal Zoster vaccine (1st). Due on due Goal Unhealthy drug use screening . Due on due Goal Pneumococcal vaccine. Due on due Goal Depression screening. Due on due Goal Sigmoidoscopy. Due on due Goal FOBT. Due on due Goal Td vaccine. Due on due History Of Present Illness Encounter Date Complaint History Of Prese nt Illness Fish hook in arm The symptoms be soren on 11/28/2023 and generally lasts varies. The symptoms are reported as being mild. The symptoms occur constantly. The client states the symptoms are acute and are of new onset. Patient presents to the clinic with complaints of a fish hooking being lodged in his skin of the medial aspect of his right upper arm. Functional Status Date Functional Assessmen t Pain Score 0/10 Instructions Date Instruction Additional Infor alfred -- Provider cleaned the area with chlorahexadine. Lidocaine with Epi 2ml used. Provider attempted to back lure out of arm but due to josie was unsuccessful. Provider then used wire cutters and was able to push lure through skin. KYAW applied with a nonstick dressing. Patient tolerated well.-- Rx Cephalexin 500mg bid x7 days-- Rx Mupirocin 2% tid -- Clean with a good soap and water at least daily-- Watch for signs of infection-- Follow up prn Related to Superficial foreign body of right upper arm, initial encounter Assessments Type Assessment Date assessment Superficial foreign body of righ t upper arm, initial encounter impression Patient is a 68 year old male who presented to the urgent care with complaints of a fish hook being embedded in his right upper arm for approximately 15 minutes. Voiced he is currently traveling from [place] and reached into his back seat of his vehicle and a fish hook accidentally punctured and stuck in his right arm. Attempted to remove the hook on his own but was unsuccessful. Last tetanus was in 2020. Mental Status Date Cognitive Assessment Orientation - Broadd[place] ed to time, place, person, situation. Patient Care Teams Name Effective Dates (start - stop) Status Members No Information
[2025-05-13 14:11] LABS: Prostate Specific Antigen 1.6 ng/mL (< OR = 4.0)
== END 2025-05-13 11:42 | disposition home or self-care (01) ==
PROVIDERS: PCP Family Medicine; Visit Provider Family Medicine
DX: R35.1 Nocturia (principal); Z12.5 Encounter for screening for malignant neoplasm of prostate
CPT/HCPCS: 36415; 84153; G0103